=== PATIENT | male | born 1975 | race Caucasian/White ===

== ENCOUNTER 2020-03-03 11:39 | Emergency (ER) | payer BC, OTHER, SELFPAY ==
[~2020-03-03] VITALS: Ht 195.6 cm; Wt 125.0 kg
[2020-03-03 11:42] VITALS: BP 137/69
[2020-03-03] MEDS ORDERED: ONDANSETRON ODT 4 MG ONE (12:11)
[2020-03-03] MEDS ORDERED: HYDROcodone/APAP 5/325 TABLET ONE (12:12)
[2020-03-03] MEDS ORDERED: OXYcodone/APAP 5/325MG TABLET ONE (12:21)
[2020-03-03] MEDS ORDERED: OXYcodone/APAP 5/325MG TABLET PO ONE (12:30)
[2020-03-03] MEDS ORDERED: ONDANSETRON ODT 4 MG PO ONE (12:30)
== END 2020-03-03 14:10 | disposition home or self-care (01) ==
LOC: ED 12:38
DX: S06.0X0A Concussion without loss of consciousness, initial encounter (principal); S16.1XXA Strain of muscle, fascia and tendon at neck level, initial encounter; M79.642 Pain in left hand; W01.0XXA Fall on same level from slipping, tripping and stumbling without subsequent striking against object, initial encounter; Y93.79 Activity, other specified sports and athletics; Y92.828 Other wilderness area as the place of occurrence of the external cause; Y99.8 Other external cause status
CPT/HCPCS: 29125; 70450; 72125; 73130; 99285; Q0162